=== PATIENT | female | born 1995 | race Caucasian/White ===

== ENCOUNTER → 2019-08-26 | Outpatient (CLI) | payer BC, OTHER ==
[2019-08-26 12:55] LABS: ABSOLUTE LYMPHOCYTES (AUTO) 1.4 10^3/uL (0.5-4.7); ABSOLUTE MONOCYTES (AUTO) 0.3 10^3/uL (0.1-1.4); ABSOLUTE NEUT (AUTO) 5.1 10^3/uL (1.7-8.2); BASOPHILS % (AUTO) 0.3 % (0-2); EOSINOPHILS % (AUTO) 0.4 % (0-6); HEMATOCRIT 38.1 % (36.0-47.0); HEMOGLOBIN 13.1 g/dL (12.0-15.5); LYMPHOCYTES % (AUTO) 20.2 % (13-45); MEAN CORPUSCULAR HEMOGLOBIN 29.8 pg (27.0-33.4); MEAN CORPUSCULAR HGB CONC 34.4 g/dL (32.0-36.0); MEAN CORPUSCULAR VOLUME 86 fl (80-97); PLATELET COUNT 187 10^3/uL (150-450); RED BLOOD COUNT 4.41 10^6/uL (3.72-5.28); RED CELL DISTRIBUTION WIDTH 13.1 % (11.5-14.0); SEGMENTED NEUTROPHILS % (AUTO) 75.1 % (42-78); TOTAL CELLS COUNTED % (AUTO) 100 %; WHITE BLOOD COUNT 6.8 10^3/uL (4.0-10.5)
[2019-08-26 14:17] LABS: FOLATE > 20.00 ng/mL (>2.76)
== END ==
LOC: OD 11:31
PROVIDERS: ATTEND Advanced Practice Midwife
DX: Z36.89 Encounter for other specified antenatal screening (principal); Z13.0 Encounter for screening for diseases of the blood and blood-forming organs and certain disorders involving the immune mechanism
CPT/HCPCS: 36415; 82105; 82728; 82746; 83540; 83550; 85025

== ENCOUNTER 2019-12-10 11:02 | Outpatient (CLI) | payer BC, OTHER ==
[2019-12-10 12:33] LABS: APPEARANCE,URINE CLEAR; BILIRUBIN,URINE NEGATIVE (NEGATIVE); COLOR,URINE YELLOW; GLUCOSE, URINE NEGATIVE (NEGATIVE); KETONES,URINE NEGATIVE (NEGATIVE); LEUKOCYTE ESTERASE,URINE LARGE (NEGATIVE); NITRITE,URINE NEGATIVE (NEGATIVE); PROTEIN,URINE NEGATIVE (NEGATIVE); URINE AMPHETAMINES SCREEN NEGATIVE; URINE BARBITURATES SCREEN NEGATIVE; URINE BENZODIAZEPINES SCREEN NEGATIVE; URINE COCAINE SCREEN NEGATIVE; URINE MARIJUANA (THC) SCREEN NEGATIVE; URINE METHADONE SCREEN NEGATIVE; URINE PHENCYCLIDINE SCREEN NEGATIVE; URINE SPECIFIC GRAVITY 1.006; UROBILINOGEN,URINE NEGATIVE mg/dL (<2.0)
== END 2019-12-10 12:18 | disposition home or self-care (01) ==
LOC: LC 11:02
PROVIDERS: ATTEND Obstetrics & Gynecology
DX: O47.03 False labor before 37 completed weeks of gestation, third trimester (principal); Z3A.31 31 weeks gestation of pregnancy
CPT/HCPCS: 80307; 81001

== ENCOUNTER 2020-02-07 05:51 | Inpatient (IN) | payer BC, OTHER ==
[2020-02-07] MEDS ORDERED: RINGERS SOLUTION,LACTATED 1,000 ML IV ONE (05:55)
[2020-02-07] MEDS ORDERED: OXYTOCIN/0.9 % SODIUM CHLORIDE 30 UNIT/500 ML RTUINJ IV PRN (05:56)
[2020-02-07] MEDS: RINGERS SOLUTION,LACTATED 1,000 ML IV PRN ×2 (06:40→09:15)
[2020-02-07 06:44] LABS: ABSOLUTE EOSINOPHILS # (AUTO) 0.1 10^3/uL (0.0-0.6); ABSOLUTE LYMPHOCYTES (AUTO) 1.2 10^3/uL (0.5-4.7); ABSOLUTE MONOCYTES (AUTO) 0.4 10^3/uL (0.1-1.4); ABSOLUTE NEUT (AUTO) 6.1 10^3/uL (1.7-8.2); BASOPHILS % (AUTO) 0.2 % (0-2); EOSINOPHILS % (AUTO) 0.8 % (0-6); HEMOGLOBIN 14.1 g/dL (12.0-15.5); LYMPHOCYTES % (AUTO) 15.8 % (13-45); MEAN CORPUSCULAR HEMOGLOBIN 31.5 pg (27.0-33.4); MEAN CORPUSCULAR HGB CONC 34.4 g/dL (32.0-36.0); MEAN CORPUSCULAR VOLUME 91 fl (80-97); MONOCYTES % (AUTO) 4.8 % (3-13); PLATELET COUNT 128 10^3/uL (150-450); RED BLOOD COUNT 4.48 10^6/uL (3.72-5.28); RED CELL DISTRIBUTION WIDTH 13.1 % (11.5-14.0); SEGMENTED NEUTROPHILS % (AUTO) 78.4 % (42-78); TOTAL CELLS COUNTED % (AUTO) 100 %; WHITE BLOOD COUNT 7.7 10^3/uL (4.0-10.5)
[2020-02-07 06:46] LABS: APPEARANCE,URINE CLOUDY; BILIRUBIN,URINE NEGATIVE (NEGATIVE); COLOR,URINE YELLOW; GLUCOSE, URINE NEGATIVE (NEGATIVE); KETONES,URINE NEGATIVE (NEGATIVE); LEUKOCYTE ESTERASE,URINE LARGE (NEGATIVE); NITRITE,URINE NEGATIVE (NEGATIVE); PROTEIN,URINE NEGATIVE (NEGATIVE); URINE SPECIFIC GRAVITY 1.014; UROBILINOGEN,URINE NEGATIVE mg/dL (<2.0)
[2020-02-07] MEDS ORDERED: LIDOCAINE 1% INJ-PF (10 MG/ML) 30 ML SDV ONE (06:51)
[2020-02-07] MEDS ORDERED: MISOPROSTOL 0.2 MG TABLET ONE (06:51)
[2020-02-07] MEDS ORDERED: OXYTOCIN/0.9 % SODIUM CHLORIDE 30 UNIT/500 ML RTUINJ ONE (06:51)
[2020-02-07] MEDS ORDERED: OXYTOCIN 10 UNIT/ML VIAL ONE (06:51)
[2020-02-07 07:05] LABS: ALBUMIN 3.3 g/dL (3.5-5.0); ALKALINE PHOSPHATASE 182 U/L (38-126); ANION GAP 7 (5-19); ASPARTATE AMINO TRANSFERASE 23 U/L (14-36); BILIRUBIN,TOTAL 0.4 mg/dL (0.2-1.3); BLOOD UREA NITROGEN 7 mg/dL (7-20); CALCIUM 9.6 mg/dL (8.4-10.2); CARBON DIOXIDE 24 mmol/L (22-30); CHLORIDE 106 mmol/L (98-107); GLUCOSE 89 mg/dL (75-110); POTASSIUM 3.8 mmol/L (3.6-5.0); TOTAL PROTEIN 6.1 g/dL (6.3-8.2); URIC ACID 6.6 mg/dL (2.5-6.2)
[2020-02-07 07:06] LABS: URINE AMPHETAMINES SCREEN NEGATIVE; URINE BARBITURATES SCREEN NEGATIVE; URINE BENZODIAZEPINES SCREEN NEGATIVE; URINE COCAINE SCREEN NEGATIVE; URINE MARIJUANA (THC) SCREEN NEGATIVE; URINE METHADONE SCREEN NEGATIVE; URINE PHENCYCLIDINE SCREEN NEGATIVE
--- NOTE | 2020-02-07 07:07 | Admission Physical ---
Datetime Report Generated by CPN: 02/07/2020 07:06 CURRENT ADMISSION Chief Complaint: Scheduled Induction of Labor Indication for Induction: Chronic Primary/Essential HTN Admit Impression : Term, Intrauterine ; Induction of Labor Admit Plan: Admit to Unit ALLERGIES Medication Allergies: No Medication Allergies: No Known Allergies (02/07/2020) Latex: No Latex Allergies Food Allergies: None Environmental Allergies: Dust OBSTETRICAL HISTORY EDC: 02/09/2020 00:00 : 1 Para: 0 Term: 0 : 0 SAB: 0 IAB: 0 Ectopic: 0 Livin Cesareans: 0 VBACs: 0 Gestational Diabetes: No Rh Sensitization: No Incompetent Cervix: No LOUANN: No Infertility: No ART Treatment: No Uterine Anomaly: No IUGR: No Hx Previous C/S: No Macrosomia: No Hx Loss/Stillborn: No PIH: Yes Hx : No Placenta Previa/Abruption: No Depression/PP Depression: No PTL/PROM: No Post Hemorrhage: No Current Procedures: Ultrasound Obstetrical History Comments: G1-Current SEE RECORDS Alcohol: No Marijuana : No Cocaine: No Other Illicit Drugs: No Cigarettes: Never Smoker. [id number] MEDICAL HISTORY Diabetes: No Blood Transfusion: No Pulmonary Disease (Asthma, TB): No Breast Disease: No Hypertension: No Spinner Tender Surgery: No Heart Disease: No Hosp/Surgery: Yes Autoimmune Disorder: No Anesthetic Complications: No Kidney Disease: Yes Abnormal Pap Smear: No Neuro/Epilepsy: No Psychiatric Disorders: No Other Medical Diseases: No Hepatitis/Liver Disease: No Significant Family History: No Varicosities/Phlebitis: No Trauma/Violence : No Thyroid Dysfunction: No Medical History Comments: Possible kidney stone in 3rd grade, tonsillectomy and adenoidectomy at age 56 years old INFECTIOUS HISTORY Gonorrhea: No Genital Herpes: No Chlamydia: No Tuberculosis: No Syphilis: No Hepatitis: No HIV/AIDS Exposure: No Rash or Viral Illness: No HPV: No PHYSICAL EXAM General: Normal HEENT: Normal Neurologic: Normal Thyroid: Normal Heart: Normal Lungs: Normal Breast: Normal Back: Normal Abdomen: Normal Genitourinary Exam: Normal Extremities: Normal DTRs: Normal Pelvic Type: Adequate Vital Signs: Reviewed; Within Normal Limits VAGINAL EXAM Dilatation: 2 Effacement: 50 Station: -1 MEMBRANES Pooling: Negative Membranes: Intact FETUS A EGA: 39.5 Monitoring: External US FHR- Baseline: 130 Variability: Moderate 6-25bpm Accelerations: 15X15 Decelerations: None FHR Category: Category I Estimated Weight (gm): 3600 Presentation: Vertex PLANS FOR LABOR AND DELIVERY Labor and Delivery: None Pain Management: Epidural Feeding Preference: Breast Benefit of Breast Feed Discussed: Yes Circumcision: N/A INFORMED CONSENT Signature: with User ID: [email or web address]
--- NOTE | 2020-02-07 08:55 | L&D Progress Notes ---
PROGRESS NOTES Datetime Report Generated by CPN: 02/07/2020 08:55 PROGRESS NOTE Impression: Reassuring Heart Rate Plan: Induction Vital Signs : Reviewed; Within Normal Limits Comment: at 39.5 wks, IOL for Pre-eclampsia. Pt doing well this morning, no complaints. Pitocin infusing. GBS negative. Considering epidural when in active labor. Plan AROM w/ stronger contractions. Attending MD is Dr Parker, agrees with plan of care. VAGINAL EXAM Dilatation: 2 Effacement: 50 Station: -1 LAST VAGINAL EXAM-NURSING Nursing Exam Dilitation: 2.0 Nursing Exam Effacement: 50 Nursing Exam Station: -1 MEMBRANES Pooling: Negative Membranes: Intact FETUS A FHR - Baseline: 130 Monitoring: External US Variability: Moderate 6-25bpm Accelerations: 15X15 Decelerations: None FHR Category: Category I : 39.5 Estimated Weight (gm): 3600 Presentation: Vertex SIGNATURE SIGNATURE: [id number];14,[id number];13,[id number] Assignment: Carmine Parker MD Signature: with User ID: [email or web address] : with User ID: [email or web address]
--- NOTE | 2020-02-07 11:59 | Warning Signs in Babies ---
VOD Warning Signs Datetime Report Generated by [facility]: 02/07/2020 11:59 VOD#608 -Warning Signs in Babies: Viewed with Parent(s)/Family (12/10/2019 11:03:Fernanda Mcmanus RN)
--- NOTE | 2020-02-07 12:08 | L&D Progress Notes ---
PROGRESS NOTES Datetime Report Generated by CPN: 02/07/2020 12:08 PROGRESS NOTE Impression: Reassuring Heart Rate Procedures: Artificial ROM; Sterile Vag Exam Plan: Continue Present Management; Induction Vital Signs : Reviewed; Within Normal Limits Comment: Pt doing well on the Pitocin, remains comfortable without complaints. VE 2/70/-1, Vtx, AROM w/ small amount of clear fluid. Pitocin at 20 mu/min. Position changes encouraged. Pt considering an epidural at some point. Attending MD is Dr Parker. VAGINAL EXAM Dilatation: 2 Effacement: 50 Station: -1 LAST VAGINAL EXAM-NURSING Nursing Exam Dilitation: 2.0 Nursing Exam Effacement: 70 Nursing Exam Station: -1 MEMBRANES Pooling: Negative Membranes: Ruptured Amniotic Fluid Color: Clear FETUS A FHR - Baseline: 125 Monitoring: External US Variability: Moderate 6-25bpm Accelerations: 15X15 Decelerations: None FHR Category: Category I : 39.5 Estimated Weight (gm): 3600 Presentation: Vertex SIGNATURE SIGNATURE: [id number];14,[id number];13,[id number];27,[id number] Assignment: Carmine Parker MD Signature: with User ID: [email or web address] : with User ID: [email or web address]
[2020-02-07 13:24] LABS: HEMATOCRIT 39.5 % (36.0-47.0); HEMOGLOBIN 13.6 g/dL (12.0-15.5); MEAN CORPUSCULAR HEMOGLOBIN 31.6 pg (27.0-33.4); MEAN CORPUSCULAR HGB CONC 34.4 g/dL (32.0-36.0); MEAN CORPUSCULAR VOLUME 92 fl (80-97); PLATELET COUNT 114 10^3/uL (150-450); RED CELL DISTRIBUTION WIDTH 13.3 % (11.5-14.0); WHITE BLOOD COUNT 8.5 10^3/uL (4.0-10.5)
[2020-02-07] MEDS ORDERED: ROPIVACAINE HCL 0.2% INJ/PF (2 MG/ML) 20 ML SDV ONE (13:29)
[2020-02-07] MEDS ORDERED: FENTANYL/BUPIVACAINE/NS/PF 300 MCG/150 ML RTUINJ EPI ONE (13:29)
[2020-02-07] MEDS ORDERED: EPHEDRINE SULFATE INJ 50 MG/1 ML AMPULE ONE (13:29)
[2020-02-07 13:37] LABS: ALBUMIN 3.1 g/dL (3.5-5.0); ALKALINE PHOSPHATASE 185 U/L (38-126); ANION GAP 7 (5-19); ASPARTATE AMINO TRANSFERASE 23 U/L (14-36); BILIRUBIN,TOTAL 0.4 mg/dL (0.2-1.3); BLOOD UREA NITROGEN 7 mg/dL (7-20); CALCIUM 9.2 mg/dL (8.4-10.2); CARBON DIOXIDE 23 mmol/L (22-30); CHLORIDE 104 mmol/L (98-107); GLUCOSE 105 mg/dL (75-110); POTASSIUM 3.8 mmol/L (3.6-5.0); TOTAL PROTEIN 5.8 g/dL (6.3-8.2)
[2020-02-07] MEDS ORDERED: ACETAMINOPHEN 325 MG TABLET ONE (22:51)
[2020-02-08] MEDS ORDERED: PROMETHAZINE HCL 25 MG TABLET PO PRN (01:25)
[2020-02-08] MEDS ORDERED: PROMETHAZINE HCL 25 MG SUPP.RECT PR PRN (01:25)
[2020-02-08] MEDS ORDERED: DIBUCAINE 1% OINTMENT 28 GM TP PRN (01:25)
[2020-02-08] MEDS ORDERED: DIPHENHYDRAMINE HCL 25 MG CAPSULE PO PRN (01:25)
[2020-02-08] MEDS ORDERED: PROMETHAZINE HCL INJ 25 MG/1 ML VIAL IV PRN (01:25)
[2020-02-08] MEDS ORDERED: GLYCERIN/WITCH HAZEL LEAF 1 EACH MED..WIPE TP PRN (01:25)
[2020-02-08] MEDS ORDERED: ZOLPIDEM TARTRATE 5 MG TABLET PO PRN (01:25)
[2020-02-08] MEDS ORDERED: NA PHOS,M-B/NA PHOS,DI-BA (ADULT) 133 ML ENEMA PR PRN (01:25)
[2020-02-08] MEDS ORDERED: BENZOCAINE/MENTHOL AEROSOL SPRAY 56 ML TOP PRN (01:25)
[2020-02-08] MEDS ORDERED: DIPH/PERTUSS(ACELL)/TETANUS VAC/PF 0.5 ML SYR (>=10YO) IM PRN (01:25)
[2020-02-08] MEDS ORDERED: ACETAMINOPHEN 650 MG SUPP.RECT PR PRN (01:25)
[2020-02-08] MEDS ORDERED: PSEUDOEPHEDRINE HCL 30 MG TABLET PO PRN (01:25)
[2020-02-08] MEDS ORDERED: ACETAMINOPHEN WITH CODEINE #3 TABLET PO PRN (01:25)
[2020-02-08] MEDS ORDERED: MEASLES,MUMPS&RUBELLA VACC/PF 0.5 ML VIAL SUBCUT PRN (01:25)
[2020-02-08] MEDS ORDERED: MAGNESIUM HYDROXIDE SUSP 30 ML UDCUP PO PRN (01:25)
[2020-02-08] MEDS ORDERED: OXYTOCIN/0.9 % SODIUM CHLORIDE 30 UNIT/500 ML RTUINJ IV PRN (01:25)
--- NOTE | 2020-02-08 02:30 | Birth Certificate Data ---
Cert Data Datetime Report Generated by CPN: 02/08/2020 02:30 CERTIFICATE DATA 47a. Care: Yes (12/10/2019 11:03:Kayla Corea RN) 47b. Date of First Visit: 08/05/2019 00:00 (12/10/2019 11:03:Kayla Corea RN) 47c. Date of Last Visit: 02/02/2020 00:00 (12/10/2019 11:03:Kayla Corea RN) 47d. Number of Visits: 10 (12/10/2019 11:03:Kayla Corea RN) 48a. Number of Prev Live Births: 0 (12/10/2019 11:03:Kayla Corea RN) 48b. Now Livin (12/10/2019 11:03:Kayla Corea RN) 48c. Live Births Now : 0 (12/10/2019 11:03:QS system process) RISK FACTORS IN THIS 49a. Diabetes: No (12/10/2019 11:03:Jm Menjivar RN) 49b. Hypertension: No (12/10/2019 11:03:Jm Menjivar RN) Type of Hypertension: Gestational (PIH, Pre-eclampsia) (12/10/2019 11:03:KONRAD James) 49c. Previous Births: 0 (12/10/2019 11:03:Kayla Corea RN) 49d. Stillborns: No (12/10/2019 11:03:Jm Menjivar RN) 49d. IUGR: No (12/10/2019 11:03:Jm Menjivar RN) 49e. Infertility Treatment: No (12/10/2019 11:03:Jm Menjivar RN) 49f. Previous Cesareans: 0 (12/10/2019 11:03:Kayla Corea RN) Mother's Height 50b. Height Inches: 60 (12/10/2019 11:16:QS system process) Mother's Weight 51a. Pre- Weight: 117 (12/10/2019 11:03:Kayla Corea RN) 51b. Weight at Time of Delivery: 163 (02/07/2020 06:19:QS system process) Infections Present/Treated 53a. Gonorrhea: No (12/10/2019 11:03:Jm Menjivar RN) Results this Hospital Visit : Negative (12/10/2019 11:03:Kayla Corea RN) 53b. Syphilis: No (12/10/2019 11:03:Jm Menjivar RN) Results this Hospital Visit: NONREACTIVE (02/07/2020 06:12:QS system process) 53c. Chlamydia: No (12/10/2019 11:03:Jm Menjivar RN) Results this Hospital Visit: Negative (12/10/2019 11:03:Kayla Corea RN) 53d. Hepatitis B: No (12/10/2019 11:03:Jm Menjivar RN) Results this Hospital Visit: Negative (12/10/2019 11:03:Kayla Corea RN) 53e. Hepatitis C: Negative (12/10/2019 11:03:Kayla Corea RN) 53i. Date Tested: 08/05/2019 00:00 (12/10/2019 11:03:Kayla Corea RN) Obstetric Procedures 54a, b, c. Obstetric Procedures: Ultrasound; NST (12/10/2019 11:03:Fernanda Mcmanus, RN) Onset of Labor 56a. PROM >12 Hrs: 13.33 (12/10/2019 11:03:QS system process) 56b. Precipitous Labor <3 Hrs: 11 (12/10/2019 11:03:QS system process) 56c. Prolonged Labor > 20 Hrs: 11 (12/10/2019 11:03:QS system process) 57a. Induction of Labor: Induction (12/10/2019 11:03:Fernanda Mcmanus RN) 57c. Non-Vertex Presentation A: Vertex (12/10/2019 11:03:Carmine Parker MD (MEKA)) 57d. Steroids - Lung Mat: None (12/10/2019 11:03:Fernanda Mcmanus RN) 57d. Steroids - Lung Mat: Not Applicable (12/10/2019 11:03:Fernanda Mcmanus RN) 57g. Moderate/Heavy Meconium: Clear (02/07/2020 11:54:Fernanda Mcmanus RN) 57h. Intolerance of Labor: N/A (12/10/2019 11:03:Florence Amin RN) : N/A (12/10/2019 11:03:Florence Amin RN) 57i. Epidural/Spinal Anesthesia: Epidural (12/10/2019 11:03:Florence Amin RN) Method of Delivery 58a. Forceps - Unsuccessful A: N/A (12/10/2019 11:03:Florence Amin RN) 58b. Vacuum - Unsuccessful A: N/A (12/10/2019 11:03:Florence Amin RN) 58c. Presentation at 58c. Presentation at - A : Vertex (12/10/2019 11:03:Carmine Parker MD (MEKA)) 58c. Presentation at - A : N/A (12/10/2019 11:03:Florence Amin RN) 58c. Presentation at - A : Cephalic (02/07/2020 22:01:Renetta Torres RN) Final Route and Method of Del 58d. Baby A Route/Delivery: Vaginal (02/08/2020 01:15:Renetta Torres RN) 58e. Trial of Labor Attempted: No (12/10/2019 11:03:Florence Amin RN) 58e. Trial of Labor Attempted A: N/A (12/10/2019 11:03:Fernanda Mcmanus RN) 58e. Trial of Labor Attempted B: N/A (12/10/2019 11:03:Fernanda Mcmanus RN) Maternal Morbidity 59b. 3rd or 4th Degree Lacs: Perineal (12/10/2019 11:03:Carmine Parker MD (WEB)) Birthweight Baby A: 3780 (12/10/2019 11:03:Mayela [place], [facility]) 60a. Pounds : 8 (12/10/2019 11:03:QS system process) 60b. Ounces: 5 (12/10/2019 11:03:QS system process) 61. GA at Delivery Baby A: 39.6 (12/10/2019 11:03:Florence Amin RN) : Full Term- 39- 40.6 Weeks (12/10/2019 11:03:QS system process) 62a. 5 Minute Baby A: 9 (12/10/2019 11:03:QS system process)
--- NOTE | 2020-02-08 02:30 | Delivery Summary ---
Del Sum A-C Datetime Report Generated by CPN: 02/08/2020 02:30 DELIVERY PERSONNEL DELIVERY PERSONNEL: [id number] Delivery Doctor:: Carmine Parker MD Labor and Delivery Nurse:: Renetta Torres RNsteel box toe inserter Nurse:: Florence Amin RN Nursery Nurse:: Marisel Wakefield RN Nursery Nurse:: Soumya Hagen RN MSN Classifications Officer Cc/Cm/BIOFUELS PLANT MANAGER: Marium Saleh, ST MATERNAL INFORMATION Delivery Anesthesia: Epidural Medications After Delivery: Pitocin 30 Units in 500ml NS/D5W Delivery QBL: 150 Maternal Complications: None; Other LABOR SUMMARY EDC: 02/09/2020 00:00 No. Babies in Womb: 1 Attempted: No Labor Anesthesia: Epidural LABOR INFORMATION Reason for Induction: Pre-Eclampsia Onset of Labor: 02/07/2020 13:40 Complete Dilatation: 02/07/2020 22:41 Oxytocin: Induction Group B Beta Strep: negative Steroids Given: None Reason Steroids Not Administered: Not Applicable MEMBRANES Membranes Rupture Method: Artificial Rupture of Membranes: 02/07/2020 11:55 Length of Rupture (hr): 13.33 Amniotic Fluid Color: Clear Amniotic Fluid Amount: Small Amniotic Fluid Odor: None STAGES OF LABOR Stage 1 hr: 9 Stage 1 min: 1 Stage 2 hr: 2 Stage 2 min: 34 Stage 3 hr: 0 Stage 3 min: 3 Total Time in Labor hr: 11 Total Time in Labor min: 38 VAGINAL DELIVERY Episiotomy: None Laceration #1: Perineal Laceration Extension #1: First Degree Sponge Count Correct: Yes Sharps Count Correct: Yes CSECTION DELIVERY Primary Indication: N/A Secondary Indication: N/A CSection Incidence: N/A Labor: N/A Elective: N/A CSection Incision: N/A BABY A INFORMATION Delivery Date/Time: 02/08/2020 01:15 Method of Delivery: Vaginal Nurse Controlled Delivery: No Born in Route : No : N/A Forceps: N/A Vacuum Extraction: N/A Shoulder Dystocia : No PRESENTATION/POSITION BABY A Presentation: Cephalic Cephalic Presentation: Vertex Vertex Position: Left Occipital Anterior Breech Presentation: N/A PLACENTA INFORMATION BABY A Placenta Delivery Time : 02/08/2020 01:18 Placenta Method of Delivery: Spontaneous Placenta Status: Delivered SCORES BABY A Heart Rate 1 min: >100 bpm Resp Effort 1 min: Good Cry Reflex Irritability 1 min: Cough or Sneeze or Pulls Away Muscle Tone 1 min: Active Motion Color 1 min: Blue/Pale SCORE 1 MIN: 8 Heart Rate 5 min: >100 bpm Resp Effort 5 min: Good Cry Reflex Irritability 5 min: Cough or Sneeze or Pulls Away Muscle Tone 5 min: Active Motion Color 5 min: Body [place], Extremities Blue SCORE 5 MIN: 9 INFANT INFORMATION BABY A Gestational Age at Delivery: 39.6 Gestational Status: Full Term- 39- 40.6 Weeks Infant Outcome : Liveborn Condition : Stable Infant Sex: Female IDENTIFICATION BABY A Infant Verification Date/Time: 02/08/2020 01:24 ID Band Number: [id number] Mother's Name Verified: Yes Infant RN Verifying : S Anmol RN/D Bellavance RN WEIGHT/LENGTH BABY A Birthweight (gm): 3780 Weight (lb): 8 Infant Weight (oz): 5 CORD INFORMATION BABY A No. Cord Vessels: 3 Nuchal Cord : N/A Cord Blood Taken: Yes-For Eval (Mom's Blood Type - or O+) ASSESSMENT BABY A Complications: None Physical Findings at Delivery: Within Normal Limits Respirations: Appears Normal Skin to Skin: Yes Transferred To: Remains with Mother BABY B INFORMATION : N/A SIGNATURES Signature: with User ID: [email or web address]
[2020-02-08] MEDS: IBUPROFEN 800 MG TABLET PO SCH ×3 (05:18→22:26)
[2020-02-08] MEDS: DOCUSATE SODIUM 100 MG CAPSULE PO SCH ×2 (09:16→17:24)
[2020-02-08] MEDS: FERROUS SULFATE 325 MG TABLET PO SCH ×2 (09:16→17:24)
[2020-02-08] MEDS: SENNOSIDES/DOCUSATE 8.6-50 MG 1 EACH TABLET PO SCH (09:16)
[2020-02-08] MEDS: PRENATAL VITAMIN W DHA CAPSULE PO SCH (09:16)
[2020-02-08] MEDS: FAMOTIDINE 20 MG TABLET PO SCH ×2 (09:16→22:27)
--- NOTE | 2020-02-08 12:52 | PDOC PROGRESS REPORT ---
Subjective-OB Progress Note for:: 02/08/20 Subjective: 24yo G1 now P1 s/p delivery day. Pt ambulating and voiding without difficulty. Feels tired, has not gotten much sleep since delivery. Pain well controlled with medication, no concerns today Physical Exam (OB) Vital Signs: Temp Pulse Resp BP Pulse Ox 97.5 F 78 16 90/51 L 98 02/08/20 08:09 02/08/20 08:09 02/08/20 08:09 02/08/20 08:09 02/08/20 08:09 Intake & Output 02/07/20 02/08/20 02/09/20 06:59 06:59 06:59 Intake Total 323 Output Total 400 Balance -77 Weight 73.6 kg - General General Appearance: Appears well In distress: None - PIH/Pre-Eclampsia DTR's: 2 + Clonus: Negative Headache: Absent Epigastric Pain: No Visual Changes: No - Maternal Morbidity 59. Maternal Morbidity (serious complications experinced by the mother associated with labor and delivery: None of the above - Episiotomy/Laceration Site Condition: Well Approximated - Lochia Lochia Amount: Scant < 10 ml Lochia Color: Rubra/Red - Abdomen Description: Soft, Round Fundal Description: Firm, Midline Fundal Height: u/u - u/2 - Respiratory Respiratory Status: No respiratory distress - Extremities Upper extremity: Normal inspection Lower extremities: Normal inspection - Neurological Cognition: Normal Orientation: AAOx4 - Psychological Associated symptoms: Normal affect, Normal mood Objective-Diagnostic Laboratory: 02/07/20 12:55 02/07/20 12:55 02/07/20 02/07/20 12:55 12:55 WBC 8.5 RBC 4.30 Hgb 13.6 Hct 39.5 MCV 92 MCH 31.6 MCHC 34.4 RDW 13.3 Plt Count 114 L Sodium 133.6 L Potassium 3.8 Chloride 104 Carbon Dioxide 23 Anion Gap 7 BUN 7 Creatinine 0.48 L Est GFR ( Amer) > 60 Glucose 105 Calcium 9.2 Total Bilirubin 0.4 AST 23 Alkaline Phosphatase 185 H Total Protein 5.8 L Albumin 3.1 L Assessment and Plan(PN) - Assessment and Plan (1) Vaginal delivery Is this a current diagnosis for this admission?: Yes Plan: Routine pp care (2) Perineal laceration during delivery, delivered Is this a current diagnosis for this admission?: Yes Plan: continue to monitor for s/s of pp infection (3) 39 weeks gestation of Is this a current diagnosis for this admission?: Yes Plan: delivered (4) Encounter for induction of labor Is this a current diagnosis for this admission?: Yes Plan: delivered (5) Pre-eclampsia in third trimester Is this a current diagnosis for this admission?: Yes Plan: normal bps today, denies all s/s of pre-e. Continue to monitor for s/s of pp pre-e - Time Spent with Patient Time with patient: Less than 15 minutes Medications reviewed and adjusted accordingly: Yes - Disposition Anticipated Discharge Disposition: Home, Self Care Anticipated Discharge Timeframe: within 48 hours
[2020-02-09] MEDS: IBUPROFEN 800 MG TABLET PO SCH ×3 (05:23→21:46)
[2020-02-09 07:44] LABS: HEMATOCRIT 33.7 % (36.0-47.0); HEMOGLOBIN 11.7 g/dL (12.0-15.5); MEAN CORPUSCULAR HEMOGLOBIN 32.1 pg (27.0-33.4); MEAN CORPUSCULAR HGB CONC 34.6 g/dL (32.0-36.0); MEAN CORPUSCULAR VOLUME 93 fl (80-97); PLATELET COUNT 111 10^3/uL (150-450); RED BLOOD COUNT 3.63 10^6/uL (3.72-5.28); RED CELL DISTRIBUTION WIDTH 13.8 % (11.5-14.0); WHITE BLOOD COUNT 9.1 10^3/uL (4.0-10.5)
--- NOTE | 2020-02-09 09:35 | PDOC PROGRESS REPORT ---
Subjective-OB Progress Note for:: 02/09/20 Subjective: Requesting early discharge-wants to go home and start care there. Physical Exam (OB) Vital Signs: Temp Pulse Resp BP Pulse Ox 98.2 F 82 17 122/73 100 02/09/20 08:23 02/09/20 08:23 02/09/20 08:23 02/09/20 08:23 02/09/20 08:23 Intake & Output 02/08/20 02/09/20 02/10/20 06:59 06:59 06:59 Intake Total 323 Output Total 400 Balance -77 - PIH/Pre-Eclampsia DTR's: 2 + Clonus: Negative Headache: Absent Epigastric Pain: No Visual Changes: No - Maternal Morbidity 59. Maternal Morbidity (serious complications experinced by the mother associated with labor and delivery: None of the above - Lochia Lochia Amount: Scant < 10 ml Lochia Color: Rubra/Red - Abdomen Description: Soft, Round Hernia Present: No Bowel Sounds: Normoactive Flatus Presence: Present Stool: Yes Fundal Description: Firm, Midline Fundal Height: u/u - u/2 Objective-Diagnostic Laboratory: 02/09/20 07:22 02/07/20 12:55 02/09/20 07:22 WBC 9.1 RBC 3.63 L Hgb 11.7 L Hct 33.7 L MCV 93 MCH 32.1 MCHC 34.6 RDW 13.8 Plt Count 111 L Assessment and Plan(PN) - Time Spent with Patient Time with patient: 15-25 minutes Medications reviewed and adjusted accordingly: Yes - Disposition Anticipated Discharge Disposition: Home, Self Care Anticipated Discharge Timeframe: within 24 hours
--- NOTE | 2020-02-09 09:41 | PDOC DISCHARGE SUMMARY ---
Impression - Admit/DC Date/PCP Admission Date/Primary Care Provider: 02/07/20 05:51 YAA GONZALES CNM Discharge Date: 02/09/20 - Discharge Diagnosis (1) 39 weeks gestation of Is this a current diagnosis for this admission?: Yes (2) Encounter for induction of labor Is this a current diagnosis for this admission?: Yes (3) Perineal laceration during delivery, delivered Is this a current diagnosis for this admission?: Yes (4) Pre-eclampsia in third trimester Is this a current diagnosis for this admission?: Yes (5) Vaginal delivery Is this a current diagnosis for this admission?: Yes (6) Elective induction of labor planned Is this a current diagnosis for this admission?: Yes - Additional Information Resuscitation Status: Full Code Discharge Diet: Regular Discharge Activity: Activity As Tolerated, Balance Activity w/Rest, Pelvic Rest, Slowly Increase Activity, No tub bath Referrals: YAA GONZALES CNM [Primary Care Provider] - HAZEL VILLALOBOS MD [ACTIVE STAFF] - Home Medications: Vit No.130/Iron/Folic [ Tablet] 1 each PO DAILY 12/10/19 HPI Gestational Age: 39.6 wks Reason(s) for Admission: Induction of Labor Procedures: Ultrasound Intrapartum Procedure(s): Spontaneous Vaginal Delivery Complication(s): Laceration-Perineal Laceration-Degree: 1st Hospital Course 59. Maternal Morbidity (serious complications experinced by the mother associated with labor and delivery: None of the above Results Laboratory Results: WBC 9.1 10^3/uL (4.0-10.5) 02/09/20 07: RBC 3.63 10^6/uL (3.72-5.28) L 02/09/20 07:22 Hgb 11.7 g/dL (12.0-15.5) L 02/09/20 07:22 Hct 33.7 % (36.0-47.0) L 02/09/20 07:22 MCV 93 fl (80-97) 02/09/20 07:22 MCH 32.1 pg (27.0-33.4) 02/09/20 07: MCHC 34.6 g/dL (32.0-36.0) 02/09/20 07: RDW 13.8 % (11.5-14.0) 02/09/20 07:22 Plt Count 111 10^3/uL (150-450) L 02/09/20 07:22 Lymph % (Auto) 15.8 % (13-45) 02/07/20 06:12 [place] % (Auto) 4.8 % (3-13) 02/07/20 06:12 Eos % (Auto) 0.8 % (0-6) 02/07/20 06:12 Baso % (Auto) 0.2 % (0-2) 02/07/20 06:12 Absolute Neuts (auto) 6.1 10^3/uL (1.7-8.2) 02/07/20 06:12 Absolute Lymphs (auto) 1.2 10^3/uL (0.5-4.7) 02/07/20 06:12 Absolute Monos (auto) 0.4 10^3/uL (0.1-1.4) 02/07/20 06:12 Absolute Eos (auto) 0.1 10^3/uL (0.0-0.6) 02/07/20 06:12 Absolute Basos (auto) 0.0 10^3/uL (0.0-0.2) 02/07/20 06:12 Seg Neutrophils % 78.4 % (42-78) H 02/07/20 06:12 Sodium 133.6 mmol/L (137-145) L 02/07/20 12:55 Potassium 3.8 mmol/L (3.6-5.0) 02/07/20 12:55 Chloride 104 mmol/L (98-107) 02/07/20 12:55 Carbon Dioxide 23 mmol/L (22-30) 02/07/20 12:55 Anion Gap 7 (5-19) 02/07/20 12:55 BUN 7 mg/dL (7-20) 02/07/20 12:55 Creatinine 0.48 mg/dL (0.52-1.25) L 02/07/20 12:55 Est GFR ( Amer) > 60 (>60) 02/07/20 12:55 Est GFR (MDRD) Non-Af > 60 (>60) 02/07/20 12:55 Glucose 105 mg/dL (75-110) 02/07/20 12:55 Uric Acid 6.6 mg/dL (2.5-6.2) H 02/07/20 06:12 Calcium 9.2 mg/dL (8.4-10.2) 02/07/20 12:55 Total Bilirubin 0.4 mg/dL (0.2-1.3) 02/07/20 12:55 Direct Bilirubin 0.0 mg/dL (0.0-0.4) 02/07/20 12:55 Neonat Total Bilirubin Not Reportable 02/07/20 12:55 Neonat Direct Bilirubin Not Reportable 02/07/20 12:55 Neonat Indirect Bili Not Reportable 02/07/20 12:55 AST 23 U/L (14-36) 02/07/20 12:55 ALT 16 U/L (<35) 02/07/20 12:55 Alkaline Phosphatase 185 U/L (38-126) H 02/07/20 12:55 Lactate Dehydrogenase 135 U/L (120-246) 02/07/20 06:12 Total Protein 5.8 g/dL (6.3-8.2) L 02/07/20 12:55 Albumin 3.1 g/dL (3.5-5.0) L 02/07/20 12:55 Urine Color YELLOW 02/07/20 06:00 Urine Appearance CLOUDY 02/07/20 06:00 Urine pH 7.0 (5.0-9.0) 02/07/20 06:00 Ur Specific [place] 1.014 02/07/20 06:00 Urine Protein NEGATIVE mg/dL (NEGATIVE) 02/07/20 06:00 Urine Glucose (UA) NEGATIVE mg/dL (NEGATIVE) 02/07/20 06:00 Urine Ketones NEGATIVE mg/dL (NEGATIVE) 02/07/20 06:00 Urine Blood NEGATIVE (NEGATIVE) 02/07/20 06:00 Urine Nitrite NEGATIVE (NEGATIVE) 02/07/20 06:00 Urine Bilirubin NEGATIVE (NEGATIVE) 02/07/20 06:00 Urine Urobilinogen NEGATIVE mg/dL (<2.0) 02/07/20 06:00 Ur Leukocyte Esterase LARGE (NEGATIVE) H 02/07/20 06:00 Urine Ascorbic Acid NEGATIVE (NEGATIVE) 02/07/20 06:00 Urine Opiates Screen NEGATIVE 02/07/20 06:00 Urine Methadone Screen NEGATIVE 02/07/20 06:00 Ur Barbiturates Screen NEGATIVE 02/07/20 06:00 Ur Phencyclidine Scrn NEGATIVE 02/07/20 06:00 Ur Amphetamines Screen NEGATIVE 02/07/20 06:00 U Benzodiazepines Scrn NEGATIVE 02/07/20 06:00 Urine Cocaine Screen NEGATIVE 02/07/20 06:00 U Marijuana (THC) Screen NEGATIVE 02/07/20 06:00 RPR NONREACTIVE (NONREACTIVE) 02/07/20 06:12 Blood Type O POSITIVE 02/07/20 06:12 Antibody Screen NEGATIVE 02/07/20 06:12 Plan Plan of Treatment: Follow up at [facility] in 4 wks or prn. Time Spent: Less than 30 Minutes
[2020-02-09] MEDS: FERROUS SULFATE 325 MG TABLET PO SCH ×2 (10:28→18:25)
[2020-02-09] MEDS: DOCUSATE SODIUM 100 MG CAPSULE PO SCH ×2 (10:28→18:25)
[2020-02-09] MEDS: SENNOSIDES/DOCUSATE 8.6-50 MG 1 EACH TABLET PO SCH (10:28)
[2020-02-09] MEDS: FAMOTIDINE 20 MG TABLET PO SCH ×2 (10:28→21:47)
[2020-02-09] MEDS: PRENATAL VITAMIN W DHA CAPSULE PO SCH (10:28)
[2020-02-09] MEDS ORDERED: ACETAMINOPHEN 325 MG TABLET ONE (11:02)
[2020-02-09] MEDS ORDERED: ACETAMINOPHEN 325 MG TABLET PO PRN (18:10)
[2020-02-09] MEDS: SIMETHICONE 80 MG TAB.CHEW PO PRN (22:17)
[2020-02-10] MEDS: IBUPROFEN 800 MG TABLET PO SCH ×2 (05:51→14:27)
[2020-02-10] MEDS: FERROUS SULFATE 325 MG TABLET PO SCH (09:23)
[2020-02-10] MEDS: PRENATAL VITAMIN W DHA CAPSULE PO SCH (09:23)
[2020-02-10] MEDS: SENNOSIDES/DOCUSATE 8.6-50 MG 1 EACH TABLET PO SCH (09:23)
[2020-02-10] MEDS: DOCUSATE SODIUM 100 MG CAPSULE PO SCH (09:23)
[2020-02-10] MEDS: FAMOTIDINE 20 MG TABLET PO SCH (09:23)
[2020-02-10 10:08] VITALS: BP 122/73
--- NOTE | 2020-02-10 10:49 | PDOC PROGRESS REPORT ---
Subjective-OB Progress Note for:: 02/10/20 Subjective: Doing well, no c/o, ready to go home, voiding Physical Exam (OB) Vital Signs: Temp Pulse Resp BP Pulse Ox 97.6 F 74 18 122/73 99 02/10/20 10:08 02/10/20 10:08 02/10/20 10:08 02/10/20 10:08 02/10/20 10:08 Intake & Output 02/09/20 02/10/20 02/11/20 06:59 06:59 06:59 Intake Total 1240 Output Total 1 Balance 1240 -1 - PIH/Pre-Eclampsia DTR's: 2 + Clonus: Negative Headache: Absent Epigastric Pain: No Visual Changes: No - Maternal Morbidity 59. Maternal Morbidity (serious complications experinced by the mother associated with labor and delivery: None of the above - Lochia Lochia Amount: Small 10-25 ml Lochia Color: Rubra/Red - Abdomen Description: Soft Hernia Present: No Fundal Description: Firm, Midline Fundal Height: u/u - u/2 Objective-Diagnostic Laboratory: 02/09/20 07:22 02/07/20 12:55 Assessment and Plan(PN) - Assessment and Plan (1) 39 weeks gestation of Is this a current diagnosis for this admission?: Yes (2) Encounter for induction of labor Is this a current diagnosis for this admission?: Yes (3) Perineal laceration during delivery, delivered Is this a current diagnosis for this admission?: Yes (4) Pre-eclampsia in third trimester Is this a current diagnosis for this admission?: Yes (5) Vaginal delivery Is this a current diagnosis for this admission?: Yes - Time Spent with Patient Time with patient: Less than 15 minutes Medications reviewed and adjusted accordingly: Yes - Disposition Anticipated Discharge Disposition: Home, Self Care Anticipated Discharge Timeframe: within 24 hours
--- NOTE | 2020-02-10 10:52 | PDOC DISCHARGE SUMMARY ---
Impression - Admit/DC Date/PCP Admission Date/Primary Care Provider: 02/07/20 05:51 YAA GONZALES CNM Discharge Date: 02/10/20 - Discharge Diagnosis (1) 39 weeks gestation of Is this a current diagnosis for this admission?: Yes (2) Encounter for induction of labor Is this a current diagnosis for this admission?: Yes (3) Perineal laceration during delivery, delivered Is this a current diagnosis for this admission?: Yes (4) Pre-eclampsia in third trimester Is this a current diagnosis for this admission?: Yes (5) Vaginal delivery Is this a current diagnosis for this admission?: Yes - Additional Information Resuscitation Status: Full Code Discharge Diet: Regular Discharge Activity: Activity As Tolerated, Balance Activity w/Rest, Pelvic Rest, Slowly Increase Activity, No tub bath Referrals: [facility] [Provider Group] Home Medications: Vit No.130/Iron/Folic [ Tablet] 1 each PO DAILY 12/10/19 HPI Gestational Age: 39.6 Reason(s) for Admission: Induction of Labor, [facility] Procedures: NST, Ultrasound Intrapartum Procedure(s): Spontaneous Vaginal Delivery Complication(s): Laceration-Perineal Laceration-Degree: 1st Hospital Course Hospital Course: routine 59. Maternal Morbidity (serious complications experinced by the mother associated with labor and delivery: None of the above Results Laboratory Results: WBC 9.1 10^3/uL (4.0-10.5) 02/09/20 07:22 RBC 3.63 10^6/uL (3.72-5.28) L 02/09/20 07:22 Hgb 11.7 g/dL (12.0-15.5) L 02/09/20 07:22 Hct 33.7 % (36.0-47.0) L 02/09/20 07:22 MCV 93 fl (80-97) 02/09/20 07:22 MCH 32.1 pg (27.0-33.4) 02/09/20 07:22 MCHC 34.6 g/dL (32.0-36.0) 02/09/20 07:22 RDW 13.8 % (11.5-14.0) 02/09/20 07:22 Plt Count 111 10^3/uL (150-450) L 02/09/20 07:22 Lymph % (Auto) 15.8 % (13-45) 02/07/20 06:12 Greer % (Auto) 4.8 % (3-13) 02/07/20 06:12 Eos % (Auto) 0.8 % (0-6) 02/07/20 06:12 Baso % (Auto) 0.2 % (0-2) 02/07/20 06:12 Absolute Neuts (auto) 6.1 10^3/uL (1.7-8.2) 02/07/20 06:12 Absolute Lymphs (auto) 1.2 10^3/uL (0.5-4.7) 02/07/20 06:12 Absolute Monos (auto) 0.4 10^3/uL (0.1-1.4) 02/07/20 06:12 Absolute Eos (auto) 0.1 10^3/uL (0.0-0.6) 02/07/20 06:12 Absolute Basos (auto) 0.0 10^3/uL (0.0-0.2) 02/07/20 06:12 Seg Neutrophils % 78.4 % (42-78) H 02/07/20 06:12 Sodium 133.6 mmol/L (137-145) L 02/07/20 12:55 Potassium 3.8 mmol/L (3.6-5.0) 02/07/20 12:55 Chloride 104 mmol/L (98-107) 02/07/20 12:55 Carbon Dioxide 23 mmol/L (22-30) 02/07/20 12:55 Anion Gap 7 (5-19) 02/07/20 12:55 BUN 7 mg/dL (7-20) 02/07/20 12:55 Creatinine 0.48 mg/dL (0.52-1.25) L 02/07/20 12:55 Est GFR ( Amer) > 60 (>60) 02/07/20 12:55 Est GFR (MDRD) Non-Af > 60 (>60) 02/07/20 12:55 Glucose 105 mg/dL (75-110) 02/07/20 12:55 Uric Acid 6.6 mg/dL (2.5-6.2) H 02/07/20 06:12 Calcium 9.2 mg/dL (8.4-10.2) 02/07/20 12:55 Total Bilirubin 0.4 mg/dL (0.2-1.3) 02/07/20 12:55 Direct Bilirubin 0.0 mg/dL (0.0-0.4) 08 12:55 Neonat Total Bilirubin Not Reportable 02/07/20 12:55 Neonat Direct Bilirubin Not Reportable 02/07/20 12:55 Neonat Indirect Bili Not Reportable 02/07/20 12:55 AST 23 U/L (14-36) 02/07/20 12:55 ALT 16 U/L (<35) 02/07/20 12:55 Alkaline Phosphatase 185 U/L (38-126) H 02/07/20 12:55 Lactate Dehydrogenase 135 U/L (120-246) 02/07/20 06:12 Total Protein 5.8 g/dL (6.3-8.2) L 02/07/20 12:55 Albumin 3.1 g/dL (3.5-5.0) L 02/07/20 12:55 Urine Color YELLOW 02/07/20 06:00 Urine Appearance CLOUDY 02/07/20 06:00 Urine pH 7.0 (5.0-9.0) 02/07/20 06:00 Ur Specific Shorter 1.014 02/07/20 06:00 Urine Protein NEGATIVE mg/dL (NEGATIVE) 02/07/20 06:00 Urine Glucose (UA) NEGATIVE mg/dL (NEGATIVE) 02/07/20 06:00 Urine Ketones NEGATIVE mg/dL (NEGATIVE) 02/07/20 06:00 Urine Blood NEGATIVE (NEGATIVE) 02/07/20 06:00 Urine Nitrite NEGATIVE (NEGATIVE) 02/07/20 06:00 Urine Bilirubin NEGATIVE (NEGATIVE) 02/07/20 06:00 Urine Urobilinogen NEGATIVE mg/dL (<2.0) 02/07/20 06:00 Ur Leukocyte Esterase LARGE (NEGATIVE) H 02/07/20 06:00 Urine Ascorbic Acid NEGATIVE (NEGATIVE) 02/07/20 06:00 Urine Opiates Screen NEGATIVE 02/07/20 06:00 Urine Methadone Screen NEGATIVE 02/07/20 06:00 Ur Barbiturates Screen NEGATIVE 02/07/20 06:00 Ur Phencyclidine Scrn NEGATIVE 02/07/20 06:00 Ur Amphetamines Screen NEGATIVE 02/07/20 06:00 U Benzodiazepines Scrn NEGATIVE 02/07/20 06:00 Urine Cocaine Screen NEGATIVE 02/07/20 06:00 U Marijuana (THC) Screen NEGATIVE 02/07/20 06:00 RPR NONREACTIVE (NONREACTIVE) 02/07/20 06:12 Blood Type O POSITIVE 02/07/20 06:12 Antibody Screen NEGATIVE 02/07/20 06:12 Plan Health Concerns: routine pp Plan of Treatment: Follow up at [facility] in 4 wks or prn. Goals: no complications Time Spent: Less than 30 Minutes
[2020-02-10] MEDS: SIMETHICONE 80 MG TAB.CHEW PO PRN (10:58)
== END 2020-02-10 15:07 | disposition home or self-care (01) | DRG 807 ==
LOC: LR 05:51 → 2S 02-08 03:09
PROVIDERS: ADMIT Obstetrics & Gynecology; ATTEND Obstetrics & Gynecology
PROC: 10E0XZZ Delivery of Products of Conception, External Approach (ICD-10-PCS; principal; 2020-02-07)
PROC: 0HQ9XZZ Repair Perineum Skin, External Approach (ICD-10-PCS; 2020-02-07)
PROC: 10907ZC Drainage of Amniotic Fluid, Therapeutic from Products of Conception, Via Natural or Artificial Opening (ICD-10-PCS; 2020-02-07)
DX: O10.02 Pre-existing essential hypertension complicating childbirth (principal); Z37.0 Single live birth; O70.0 First degree perineal laceration during delivery; O11.4 Pre-existing hypertension with pre-eclampsia, complicating childbirth; Z3A.39 39 weeks gestation of pregnancy
CPT/HCPCS: 1967; 36415; 80053; 80307; 81005; 83615; 84550; 85025; 85027; 86592; 86850; 86900; 86901; 87070; C1758; J2590; J2795; J3010; J3490